=== PATIENT | male | born 1945 | race Caucasian/White ===

== ENCOUNTER → 2017-04-08 | Outpatient (CLI) | payer MEDICARE, BC ==
--- NOTE | 2017-04-08 10:32 | RADONC ---
RADIATION ONCOLOGY FOLLOWUP NOTE DATE: 04/08/2017 CHART NUMBER: [id number]. DIAGNOSIS: Prostate cancer. STAGE: II, [id number]. ECOG PERFORMANCE STATUS: Zero. FOLLOWUP NOTE: Mr. 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 The patient presents today reporting that he is doing quite well with no complaints at this time related to his radiation therapy disease. He has no urinary or bowel difficulties. No bone pain. REVIEW OF SYSTEMS: The patient's review of systems is noncontributory. Denies nausea, vomiting, fevers, chills, night sweats, diplopia, headaches, anxiety or depression, anorexia, weight loss, visual disturbances, chest pain, urinary or bowel difficulties, bone pain, or neurological problems. PHYSICAL EXAMINATION: The patient is a well-developed, well-nourished male in no acute distress. HEENT exam is normocephalic, atraumatic. Extraocular movements are intact. There is no palpable cervical, supraclavicular, infraclavicular, axillary, or inguinal lymphadenopathy present. Lungs are clear to auscultation and percussion. Heart has a regular rate and rhythm. Abdomen is benign with no hepatosplenomegaly, masses, or tenderness. Rectal examination reveals a normal anal sphincter tone. His prostate is smooth with no evidence of nodularity. Skeletal examination reveals no tenderness to pressure or percussion of the bony skeleton. Extremities reveal no clubbing, cyanosis, or edema. Neurologic exam is grossly intact, as is the remainder of the physical examination. ASSESSMENT: The patient is clinically SACHI at this time and will be seen by us again in 1 year for further followup. He will also continue be followed by his other physicians as well. cc: Cecilio Do DO
== END ==
LOC: M ONCR 09:01
PROVIDERS: ATTEND Radiology Radiation Oncology
DX: C61 Malignant neoplasm of prostate (principal)

== ENCOUNTER → 2023-03-25 | Outpatient (CLI) | payer MEDICARE, BC | LOC: M PLAIMG 12:13 | PROVIDERS: ATTEND Family Medicine | DX: M54.12 Radiculopathy, cervical region (principal); M99.71 Connective tissue and disc stenosis of intervertebral foramina of cervical region; R93.7 Abnormal findings on diagnostic imaging of other parts of musculoskeletal system ==

== ENCOUNTER 2024-04-11 12:52 | Day surgery (SDC) | payer MEDICARE, BC ==
[~2024-04-11] VITALS: Ht 182.9 cm; Wt 101.4 kg
[~2024-04-11 12:52] MED LIST: LR 1,000 ML IV SCH
[2024-04-11] MEDS ORDERED: MIDAZOLAM INJ 2MG/2ML VIAL As Ordered ONE (13:24)
[2024-04-11] MEDS ORDERED: fentaNYL 100 MCG/2 ML INJECTION As Ordered ONE (13:24)
[2024-04-11] MEDS: FLURBIPROFEN 0.03% OPHTH SOLN 2.5 ML OD SCH (13:27)
[2024-04-11] MEDS: PHENYLEPHRINE 2.5% OPHTH SOL 2ML OD SCH (13:27)
[2024-04-11] MEDS: ATROPINE SULFATE 1% OPHTH SOLN 2ML BTL OD SCH (13:27)
[2024-04-11] MEDS: TETRACAINE 0.5% OPHTH SOLN 4ML OD SCH (13:27)
[2024-04-11] MEDS ORDERED: LOSA25TA13 PO (13:32)
[2024-04-11] MEDS ORDERED: ECOT81TA5 PO (13:32)
[2024-04-11] MEDS ORDERED: KP F1200 PO (13:32)
[2024-04-11] MEDS ORDERED: ATOR80TA59 PO (13:32)
[2024-04-11] MEDS ORDERED: METO1TAB7 PO (13:32)
[2024-04-11] MEDS ORDERED: EZET10TA21 PO (13:32)
[2024-04-11] MEDS ORDERED: CITA40TA7 PO (13:32)
[2024-04-11] MEDS: LIDOCAINE 1% SDV 5ML VIAL As Ordered ONE (14:37)
[2024-04-11] MEDS: CEFUROXIME 1MG/0.1ML INTRACAMERAL INJ As Ordered ONE (14:38)
[2024-04-11 14:55] VITALS: BP 148/91; TEMP 97.5; O2SAT 96
== END 2024-04-11 15:33 | disposition home or self-care (01) ==
LOC: M SDC 12:52
PROVIDERS: ATTEND Ophthalmology
DX: H25.11 Age-related nuclear cataract, right eye (principal); I10 Essential (primary) hypertension; Z86.73 Personal history of transient ischemic attack (TIA), and cerebral infarction without residual deficits; G47.33 Obstructive sleep apnea (adult) (pediatric); Z88.5 Allergy status to narcotic agent; Z79.82 Long term (current) use of aspirin; Z79.899 Other long term (current) drug therapy
CPT/HCPCS: 66984; J2250; J3010; V2632

== ENCOUNTER 2024-06-13 11:58 | Day surgery (SDC) | payer MEDICARE, BC ==
[~2024-06-13] VITALS: Ht 185.4 cm; Wt 103.4 kg
[~2024-06-13 11:58] MED LIST changes: +ATOR80TA59 PO; +CITA40TA7 PO; +CYCLOPENTOLATE 1% OPHTH SOLN 2ML BTL OS SCH; +ECOT81TA5 PO; +EZET10TA21 PO; +FLURBIPROFEN 0.03% OPHTH SOLN 2.5 ML OS SCH; +KP F1200 PO; +LOSA25TA13 PO; +METO1TAB7 PO; +PHENYLEPHRINE 2.5% OPHTH SOL 2ML OS SCH; +TETRACAINE 0.5% OPHTH SOLN 4ML OS SCH; +fentaNYL 100 MCG/2 ML INJECTION As Ordered ONE
[2024-06-13] MEDS: LIDOCAINE 1% SDV 5ML VIAL As Ordered ONE (15:24)
[2024-06-13] MEDS: CEFUROXIME 1MG/0.1ML INTRACAMERAL INJ As Ordered ONE (15:24)
[2024-06-13 15:40] VITALS: BP 158/87; TEMP 97.7; O2SAT 96
== END 2024-06-13 16:15 | disposition home or self-care (01) ==
LOC: M SDC 11:58
PROVIDERS: ATTEND Ophthalmology
DX: H25.12 Age-related nuclear cataract, left eye (principal); I10 Essential (primary) hypertension; E78.5 Hyperlipidemia, unspecified; F41.9 Anxiety disorder, unspecified; F32.A Depression, unspecified; Z86.73 Personal history of transient ischemic attack (TIA), and cerebral infarction without residual deficits; G47.33 Obstructive sleep apnea (adult) (pediatric); Z88.5 Allergy status to narcotic agent; N40.0 Benign prostatic hyperplasia without lower urinary tract symptoms; Z79.82 Long term (current) use of aspirin; Z79.899 Other long term (current) drug therapy
CPT/HCPCS: 66984; J0697; J3010; V2632